=== PATIENT | female | born 1970 | race Caucasian/White ===

== ENCOUNTER → 2019-01-10 | Outpatient (CLI) | payer OTHER ==
--- NOTE | 2019-01-10 12:30 | Diagnostic Imaging Report ---
EXAM: Thyroid Ultrasound INDICATION: Multinodular goiter. COMPARISON: Thyroid ultrasound 07/27/17. TECHNIQUE: Transverse and sagittal images were obtained of the thyroid gland. FINDINGS: Thyroid gland: Size: Right lobe 4.7 x 1.4 x 2.0 cm, Normal in size Left lobe 4.6 x 1.4 x 1.9 cm, Normal in size Isthmus 0.4 cm, Normal in size Appearance: Homogeneous echotexture without increased vascularity Masses/Nodules: Previously noted right superior predominately cystic nodule is not visualized on this study. 1. There is a right mid pole nodule: solid (2 points), hypoechoic (2 points), wider than tall (0 points), smooth margin (0 points), without calcification (0 points) measuring 0.9 x 0.6 x 0.9 cm, previously 1.1 x 0.8 x 0.9. Total: 4 points, TR4, moderately suspicious. 2. There is a right mid pole nodule: mixed solid cystic (1 point), predominantly hyperechoic (1 point), wider than tall (0 points), smooth margin (0 point), with punctate echogenic foci (3 points), measuring 1.6 x 0.8 x 1.3 cm. The nodule previously was predominantly cystic and measured 1.7 x 1.2 x 1.3 cm. There is peripheral vascular flow. Total: 4 points, TR4, moderately suspicious. 3. There is a right mid pole nodule: Solid (2 points), isoechoic (1 point), wider than tall (0 points), smooth margin (0 points), no calcifications (0 points) measuring 1.2 x 0.6 x 0.8 cm, previously 1.5 x 0.9 x 1.1 cm. Total: 3 points, TR3, mildly suspicious. 4. There is a right inferior pole nodule: mixed solid cystic (1 point), isoechoic (1 point), wider than tall (0 points), smooth margins (0 points), no calcifications (0 points), measuring 0.7 x 0.4 x 1.0 cm. Total: 2 points, TR2, not suspicious. 5. There is a left mid pole thyroid nodule: cystic (0 points), hypoechoic (2 points), wider than tall (0 points), smooth margins (0 points), no calcifications (0 points), measuring 0.4 x 0.2 x 0.5 cm. Total: 2 points, TR2, not suspicious. Parathyroid: No focal parathyroid masses. IMPRESSION: Bilateral thyroid nodules as above. Recommend FNA of 1.6 cm right midpole mixed solid-cystic nodule which is moderately suspicious (TR4). Recommend continued ultrasound follow-up of additional nodules in 12 months. ACR glossary of thyroid rads TI-RADS 1: No focal lesion. TI-RADS 2: Not suspicious. TI-RADS 3: Mildly suspicious (recommend FNA is greater than or equal to 2.5 cm; follow-up at 1, 3, and 5 years if greater than or equal to 1.5 cm) TI-RADS 4: Moderately Suspicious (recommend FNA is greater than or equal to 1.5 cm; follow-up at 1, 2, 3, and 5 years) TI-RADS 5: Highly suspicious (recommend FNA is greater than or equal to 10 mm) TI-RADS 6: Biopsy-proven malignancy Signed by: Dr. Kishor Gill MD on 01/10/2019 12:26 PM
== END ==
LOC: US 09:45
PROVIDERS: ATTEND Internal Medicine Endocrinology, Diabetes & Metabolism
DX: E04.2 Nontoxic multinodular goiter (principal)
CPT/HCPCS: 76536

== ENCOUNTER → 2019-04-30 | Outpatient (CLI) | payer OTHER ==
--- NOTE | 2019-05-14 08:43 | Diagnostic Imaging Report ---
#[id number] - MGSCRBIL #BILATERAL DIGITAL SCREENING MAMMOGRAM WITH CAD: 04/30/2019 CLINICAL: Routine screening. Comparison is made to exams dated: 04/21/2017 mammogram and 04/20/2013 mammogram - [facility]. Current study contains 4 films. There are scattered fibroglandular elements in both breasts. Current study was also evaluated with a Computer Aided Detection (CAD) system. There are benign calcifications in both breasts. There also are benign lymph nodes in both breasts. No significant masses, calcifications, or other findings are seen in either breast. IMPRESSION: BENIGN There is no mammographic evidence of malignancy. A 1 year screening mammogram is recommended. The patient will be notified by letter of the results. WONG BAILEY M.D. ct/penrad:05/11/2019 12:24:00 Research Attorney: Gris GONZALEZ(Joy)(M), [facility] letter sent: Normal Exam Mammogram BI-RADS: 2 Benign
== END ==
LOC: MAMMO 08:23
PROVIDERS: ATTEND Internal Medicine Endocrinology, Diabetes & Metabolism
DX: Z12.31 Encounter for screening mammogram for malignant neoplasm of breast (principal)
CPT/HCPCS: 77067

== ENCOUNTER → 2019-12-21 | Outpatient (CLI) | payer OTHER ==
--- NOTE | 2019-12-21 17:35 | Diagnostic Imaging Report ---
EXAM: Thyroid Ultrasound INDICATION: Thyroid nodules COMPARISON: Thyroid ultrasound 01/10/2019 TECHNIQUE: Transverse and sagittal images were obtained of the thyroid gland. FINDINGS: Thyroid gland: Size: Right lobe 5.0 x 1.9 x 2.0 cm, Normal in size Left lobe 4.5 x 1.3 x 2.1 cm, Normal in size Isthmus 0.2 cm, Normal in size Appearance: Homogeneous echotexture without increased vascularity Masses/Nodules: There is a 0.6 x 0.4 x 0.5 cm cystic nodule and right upper pole which is not visualized on the previous study. Total: 2 points, TR2, not suspicious. There is a right mid pole nodule which is solid, hypoechoic, wider than tall, likely smooth margin and without calcification which measures 1.0 x 0.8 x 0.8 cm. This nodule previously measured 0.9 x 0.6 x 0.9 cm. Total: 4 points, TR4, moderately suspicious. There is a right mid pole nodule that is solid, hypoechoic, wider than tall, has smooth margins, and no calcifications. This nodule measures 1.0 x 0.8 x 1.0 cm. Previously this nodule was mixed solid and cystic and measures 1.6 x 0.8 x 1.3 cm. Total: 4 points, TR4, moderately suspicious. There is a right midlung nodule that is solid, isoechoic, better than tall, with smooth margins and no calcifications measuring 0.9 x 0.8 x 0.7 cm. Previously this measured 1.2 x 0.6 x 0.8 cm. Total: 3 points, TR3, mildly suspicious. There is a right inferior pole module which is cystic, isoechoic, wider than tall, has smooth margins and no calcification measuring 0.9 x 0.6 x 0.9 cm. Previously this measured 0.7 x 0.4 x 1.0 cm. Total: 2 points, TR2, not suspicious. There is a left mid pole thyroid nodule: cystic (0 points), hypoechoic (2 points), wider than tall (0 points), smooth margins (0 points), no calcifications (0 points), measuring 0.5 x 0.3 x 0.2 cm which previous measured 0.4 x 0.2 x 0.5 cm. Total: 2 points, TR2, not suspicious. Parathyroid: No focal parathyroid masses. IMPRESSION: Bilateral thyroid nodules as above. Recommend continued ultrasound follow-up of additional nodules in 12 months. ACR glossary of thyroid rads TI-RADS 1: No focal lesion. TI-RADS 2: Not suspicious. TI-RADS 3: Mildly suspicious (recommend FNA is greater than or equal to 2.5 cm; follow-up at 1, 3, and 5 years if greater than or equal to 1.5 cm) TI-RADS 4: Moderately Suspicious (recommend FNA is greater than or equal to 1.5 cm; follow-up at 1, 2, 3, and 5 years) TI-RADS 5: Highly suspicious (recommend FNA is greater than or equal to 10 mm) TI-RADS 6: Biopsy-proven malignancy Signed by: Isaiah Rios MD on 12/21/2019 5:32 PM
== END ==
LOC: US 15:34
PROVIDERS: ATTEND Internal Medicine Endocrinology, Diabetes & Metabolism
DX: E04.2 Nontoxic multinodular goiter (principal)
CPT/HCPCS: 76536

== ENCOUNTER → 2020-10-20 | Outpatient (CLI) | payer OTHER | LOC: US 09:37 | PROVIDERS: ATTEND Internal Medicine Endocrinology, Diabetes & Metabolism | DX: E04.2 Nontoxic multinodular goiter (principal) | CPT/HCPCS: 76536 ==

== ENCOUNTER → 2021-07-16 | Outpatient (CLI) | payer OTHER | LOC: MAMMO 08:36 | PROVIDERS: ATTEND Obstetrics & Gynecology | DX: Z12.31 Encounter for screening mammogram for malignant neoplasm of breast (principal); Z13.820 Encounter for screening for osteoporosis | CPT/HCPCS: 77067; 77080 ==

== ENCOUNTER → 2021-10-20 | Outpatient (CLI) | payer OTHER | LOC: US 08:27 | PROVIDERS: ATTEND Internal Medicine Endocrinology, Diabetes & Metabolism | DX: E04.2 Nontoxic multinodular goiter (principal) | CPT/HCPCS: 76536 ==

== ENCOUNTER → 2024-11-01 | Outpatient (REF) | payer OTHER | LOC: MAMMO 09:55 | PROVIDERS: ATTEND Obstetrics & Gynecology | DX: Z12.31 Encounter for screening mammogram for malignant neoplasm of breast (principal); Z13.820 Encounter for screening for osteoporosis | CPT/HCPCS: 77067; 77080 ==

== ENCOUNTER → 2024-12-05 | Outpatient (REF) | payer OTHER | LOC: MAMMO 08:27 | PROVIDERS: ATTEND Obstetrics & Gynecology | DX: N60.02 Solitary cyst of left breast (principal) ==

== ENCOUNTER → 2025-07-08 | Outpatient (REF) | payer OTHER ==
[~2025-07-08] MED LIST: IOPAMIDOL 370 MG/ML 100 ML INFUS..BTL INJ ONE
[2025-07-08 09:07] LABS: EST GLOMERULAR FILTRATION RATE 84.0 ML/MIN (>=60)
== END ==
LOC: CT 07:39
PROVIDERS: ATTEND Urology
DX: D41.01 Neoplasm of uncertain behavior of right kidney (principal); N28.1 Cyst of kidney, acquired
CPT/HCPCS: 36415; 74178; 82565; 84520; Q9967

== ENCOUNTER → 2025-08-16 | Day surgery (SDC) | payer OTHER ==
[2025-08-07 10:49] LABS: BASOPHILS % 0.6 % (0.0-1.0); EOSINOPHILS % 1.2 % (0.0-6.0); LYMPHOCYTES % 24.3 % (18.0-39.1); MONOCYTES % 6.5 % (4.4-11.3); NEUTROPHILS % 66.9 % (38.7-80.0); RED CELL DISTRIBUTION WIDTH 12.3 % (11.7-14.4)
[2025-08-07 11:30] LABS: EST GLOMERULAR FILTRATION RATE 84.0 ML/MIN (>=60)
[~2025-08-16] MED LIST changes: +ACETAMINOPHEN 1000 MG/100 ML 100 ML IV ONE; +ALLERGY MEDICAT25 MG; +B-121000 MC2; +BENICAR5 MG PO; +CEFTRIAXONE 1 GM VIAL ONE; +D3-5000125 MCG; +DEXAMETHASONE SOD PHOS INJ 4 MG/ML SDV ONE; +EOHILIA2 MG/10 ML PO; +ESTRACE42.5 GM TOP; +FARXIGA10 MG PO; +FENTANYL CITRATE/PF 100MCG/2 ML INJ ONE; +FLUOXETINE HCL10 MG PO; +FOLIC ACID0.4 MG PO; +GLYCOPYRROLATE INJ 0.2 MG/ML VIAL ONE; -IOPAMIDOL 370 MG/ML 100 ML INFUS..BTL INJ ONE; +LIDOCAINE HCL 2% LOCAL INJ 5 ML SDV VIAL INJ ONE; +MIDAZOLAM HCL 2 MG/2 ML VIAL ONE; +MOUNJARO7.5 MG/0.5; +NEOSTIGMINE 1 MG/ML 10ML VIAL ONE; +NEXIUM40 MG PO; +ONDANSETRON HCL INJ 2MG/ML 2ML 2 MG/ML VIAL ONE; +PHENAZOPYRIDINE HCL 100 MG TAB ONE; +PROGESTERONE100 MG PO; +PROPOFOL IV EMULSION 10 MG/ML 20 ML VIAL ONE; +ROCURONIUM BROMIDE 1 ML IV ONE; +SEVOFLURANE INHAL SOLN 250 ML PEN BTL ONE; +SODIUM CHLORIDE 0.9% 1000ML 1,000 ML ONE; +SUCCINYLCHOLINE CHLORIDE 20 MG/ML 10ML VIAL ONE
[2025-08-16] MEDS: Sodium Chloride 0.9% 50ML Bag IV ONE (11:11)
[2025-08-16] MEDS: CEFTRIAXONE 1 GM VIAL IV ONE (11:11)
[2025-08-16 13:35] VITALS: BP 133/82; PULSE 78; RESP 18; O2SAT 95
== END | disposition home or self-care (01) ==
LOC: OR 09:36
PROVIDERS: ATTEND Urology
DX: N13.5 Crossing vessel and stricture of ureter without hydronephrosis (principal); N39.0 Urinary tract infection, site not specified; N81.2 Incomplete uterovaginal prolapse; N36.41 Hypermobility of urethra; N95.2 Postmenopausal atrophic vaginitis; I10 Essential (primary) hypertension; E11.9 Type 2 diabetes mellitus without complications; K21.9 Gastro-esophageal reflux disease without esophagitis; Z79.85 Long-term (current) use of injectable non-insulin antidiabetic drugs; Z79.899 Other long term (current) drug therapy; Z01.810 Encounter for preprocedural cardiovascular examination; Z01.812 Encounter for preprocedural laboratory examination; Z68.31 Body mass index [BMI] 31.0-31.9, adult
CPT/HCPCS: 36415 ×2; 52344; 74420; 80048; 81025; 82948; 85025; 87086; 93005; C1758; J0131; J0330; J0696; J1100; J2003; J2250; J2405; J2704; J2710; J3010; J7030